=== PATIENT | male | born 1990 | race Caucasian/White ===

== ENCOUNTER 2019-07-05 15:36 | Emergency (ER) | payer OTHER ==
[~2019-07-05] VITALS: Ht 180.3 cm; Wt 98.0 kg
[2019-07-05 15:43] VITALS: Ht 180.3 cm; Wt 98.0 kg
[2019-07-05 17:15] VITALS: BP 122/84
== END 2019-07-05 17:15 | disposition home or self-care (01) ==
LOC: ED 15:36
DX: F41.9 Anxiety disorder, unspecified (principal)

== ENCOUNTER 2019-07-08 11:54 | Emergency (ER) | payer OTHER ==
[~2019-07-08] VITALS: Ht 180.3 cm; Wt 98.0 kg
[2019-07-08 12:01] VITALS: Ht 180.3 cm; Wt 98.0 kg
[2019-07-08 13:16] VITALS: BP 120/88
== END 2019-07-08 13:16 | disposition home or self-care (01) ==
LOC: ED 11:54
DX: F41.9 Anxiety disorder, unspecified (principal); K21.9 Gastro-esophageal reflux disease without esophagitis